=== PATIENT | female | born 1955 | race Caucasian/White ===

== ENCOUNTER 2018-06-25 05:31 | Day surgery (SDC) | payer OTHER ==
[2018-06-25] MEDS ORDERED: DEXAMETHASONE 4 MG/ML 1 ML INJ (07:00)
[2018-06-25] MEDS ORDERED: METOCLOPRAMIDE 10 MG INJ (07:00)
[2018-06-25] MEDS ORDERED: FENTAnyl 50 MCG/ML VIAL IV ×2 (07:30)
[2018-06-25] MEDS ORDERED: HYDROmorphONE 1 MG/5 ML IV SYRINGE IV ×3 (07:30)
[2018-06-25] MEDS ORDERED: DIPHENHYDRAMINE 50 MG INJ IV (07:30)
[2018-06-25] MEDS ORDERED: MIDAZOLAM 1 MG/ML 2 ML INJ (07:32)
[2018-06-25] MEDS ORDERED: FENTAnyl 50 MCG/ML VIAL (07:32)
[2018-06-25] MEDS ORDERED: ONDANSETRON 4 MG INJ (07:33)
[2018-06-25] MEDS ORDERED: LIDOCAINE 2% (SDV) 5 ML INJ (07:33)
[2018-06-25] MEDS: IOHEXOL 300MG/ML 30 ML BTL (07:33)
[2018-06-25] MEDS ORDERED: PROPOFOL 20 ML (07:33)
[2018-06-25] MEDS: CIPROFLOXACIN 400 MG in D5W 200 ML IVPB (07:36)
[2018-06-25] MEDS: LACTATED RINGER'S 1,000 ML IV (07:37)
[2018-06-25] MEDS: LEVALBUTEROL (NEB) 1.25 MG/0.5 ML AMP HHN (09:30)
[2018-06-25] MEDS: IPRATROPIUM (NEB) 0.5 MG/2.5 ML AMP HHN (09:30)
[2018-06-25] MEDS: hydrALAzine 20 MG INJ IV ×2 (09:37→10:20)
[2018-06-25] MEDS: KETOROLAC 30 MG INJ IV (10:04)
[2018-06-25] MEDS: ONDANSETRON 4 MG INJ IV (10:04)
[2018-06-25] MEDS: MEPERIDINE 25 MG INJ IV (10:07)
== END 2018-06-25 11:30 | disposition home or self-care (01) ==
LOC: SDS 05:31
DX: N20.0 Calculus of kidney (principal); I10 Essential (primary) hypertension; J44.9 Chronic obstructive pulmonary disease, unspecified
CPT/HCPCS: 52356; 94664